=== PATIENT | male | born 1950 | race Caucasian/White ===

== ENCOUNTER 2018-06-24 08:24 | Outpatient (REF) | payer MEDICARE, BC, SELFPAY ==
[2018-06-24 19:27] LABS: BUN 15 mg/dL (7-18); CREATININE 0.99 mg/dL (0.70-1.30); Chloride 104 mmol/L (98-107); Cholesterol 197 mg/dL (50-200); Glucose 100 mg/dL (70-100); HDL Cholesterol 47 mg/dL (40-60); LDL CHOLESTEROL 131 mg/dL (<100); Potassium 4.3 mmol/L (3.5-5.1); Sodium 141 mmol/L (136-145); Triglyceride 75 mg/dL (30-150)
== END 2018-06-24 08:44 ==
LOC: NCHCN 08:24
PROVIDERS: PCP Physician Assistant Medical; Visit Provider Physician Assistant Medical
DX: E78.89 Other lipoprotein metabolism disorders (principal); Z13.6 Encounter for screening for cardiovascular disorders
CPT/HCPCS: 80048; 80061; 83721

== ENCOUNTER 2019-10-27 09:31 | Outpatient (REF) | payer MEDICARE, BC, SELFPAY ==
[2019-10-27 19:36] LABS: Calculated LDL 110 mg/dL (<100); Cholesterol 177 mg/dL (<200); HDL Cholesterol 42 mg/dL (40-60); Triglyceride 125 mg/dL (<150)
== END 2019-10-27 09:51 ==
LOC: NCHCN 09:31
PROVIDERS: Nurse Practitioner Family; PCP Physician Assistant Medical; Visit Provider Physician Assistant Medical
DX: E78.5 Hyperlipidemia, unspecified (principal)
CPT/HCPCS: 80061

== ENCOUNTER 2020-03-21 12:03 | Outpatient (REF) | payer MEDICARE, BC, SELFPAY ==
[2020-03-24 17:41] LABS: SARS-CoV-2 Specimen Source Nasal
[2020-03-25 08:29] LABS: SARS-CoV-2 RNA Detected (Undetected)
== END 2020-03-21 12:23 ==
LOC: NCHCN 12:03
PROVIDERS: PCP Physician Assistant; Visit Provider Physician Assistant
DX: R05 Cough (principal)
CPT/HCPCS: U0003

== ENCOUNTER 2020-11-02 09:14 | Outpatient (REF) | payer MEDICARE, SELFPAY ==
[2020-11-02 21:27] LABS: Anion Gap 11.5 mmol/L (3-11); BUN 20 mg/dL (7-18); CO2 23.5 mmol/L (21.0-32.0); Calcium 8.9 mg/dL (8.5-10.1); Calculated LDL 143 mg/dL (<100); Chloride 106 mmol/L (98-107); Cholesterol 210 mg/dL (<200); Glucose 108 mg/dL (74-106); HDL Cholesterol 46 mg/dL (40-60); Potassium 4.2 mmol/L (3.5-5.1); Sodium 141 mmol/L (136-145); Triglyceride 105 mg/dL (<150)
[2020-11-03 17:05] LABS: PSA, Screening 0.3 ng/mL (0.0-4.5)
== END 2020-11-02 09:15 | disposition home or self-care (01) ==
LOC: NCHCN 09:14
PROVIDERS: PCP Physician Assistant; Visit Provider Nurse Practitioner Family
DX: Z12.5 Encounter for screening for malignant neoplasm of prostate (principal); E78.5 Hyperlipidemia, unspecified
CPT/HCPCS: 80048; 80061; 84153